=== PATIENT | female | born 1985 | race Caucasian/White ===

== ENCOUNTER 2021-02-27 12:01 | Emergency (ER) | payer OTHER ==
[~2021-02-27] VITALS: Ht 165.1 cm; Wt 104.3 kg
[2021-02-27 13:22] VITALS: BP 119/74
--- NOTE | 2021-02-28 14:32 | EKG ---
[place] [address] ELECTROCARDIOGRAM REPORT Name: DARREN OLSEN Room: [facility]#: [id number] Admission: 02/27/21 Attend Phys: Discharge: 02/27/21 Date of : 89 Date of Service: 02/27/21 1208 Report #: [id number] THIS REPORT FOR: //name// [facility] ED Test Date: 2021-02-27 Test Time: 12:08:32 Pat Name: DARREN OLSEN Department: Room: Gender: F [employer]urb Supervisor: : [id number] Requested By: Graciela Rolbes Order Number: [id number] Andra MD: Guido Castellanos Measurements Intervals Mongo Rate: 98 P: 49 WA: 151 QRS: 67 QRSD: 83 T: 24 QT: 347 QTc: 444 Interpretive Statements Sinus rhythm No previous ECG available for comparison Electronically Signed On 02-28-2021 14:31:53 CDT by Guido Castellanos [email or web address] <ELECTRONICALLY SIGNED> By: Guido Castellanos MD, [facility] 02/28/21 1431 1208 120 Guido Castellanos MD, FACC /EPI
== END 2021-02-27 13:23 | disposition home or self-care (01) ==
LOC: M.ERS 12:01
DX: R07.89 Other chest pain (principal); F17.210 Nicotine dependence, cigarettes, uncomplicated; Z90.49 Acquired absence of other specified parts of digestive tract

== ENCOUNTER 2021-03-01 05:52 | Emergency (ER) | payer OTHER ==
[~2021-03-01] VITALS: Ht 165.1 cm; Wt 102.1 kg
[2021-03-01 06:15] LABS: URINE BILIRUBIN NEGATIVE (Negative); URINE BLOOD TRACE (Negative); URINE CLARITY CLEAR; URINE COLOR YELLOW; URINE GLUCOSE-RANDOM NEGATIVE (Negative); URINE KETONES NEGATIVE (Negative); URINE LEUKOCYTES-REFLEX NEGATIVE (Negative); URINE NITRITE-REFLEX NEGATIVE (Negative); URINE PROTEIN NEGATIVE (Negative); URINE SPECIFIC GRAVITY 1.025 (1.005-1.030); URINE UROBILINOGEN 0.2 E.U./dl (0.2-1.0)
[2021-03-01] MEDS ORDERED: ZOFRAN ODT4 MG PO (06:31)
[2021-03-01] MEDS ORDERED: CARAFATE 1 GM TA1 GM PO (06:31)
[2021-03-01] MEDS ORDERED: OMEPRAZOLE 20 M20 M1 PO (06:31)
[2021-03-01 06:34] LABS: AMP/METHAMP Negative (Negative); BARBITURATES Negative (Negative); BENZODIAZEPINES Negative (Negative); COCAINE Negative (Negative); METHADONE Negative (Negative); OPIATES Negative (Negative); PCP Negative (Negative); THC POSITIVE (Negative)
[2021-03-01 07:06] VITALS: BP 147/93
== END 2021-03-01 07:07 | disposition home or self-care (01) ==
LOC: M.ERS 05:52
PROVIDERS: Emergency Medicine
DX: K29.70 Gastritis, unspecified, without bleeding (principal); Z90.49 Acquired absence of other specified parts of digestive tract

== ENCOUNTER 2021-03-30 11:56 | Emergency (ER) | payer OTHER ==
[~2021-03-30] VITALS: Ht 165.1 cm; Wt 108.9 kg
[~2021-03-30 11:56] MED LIST: CARAFATE 1 GM TA1 GM PO; OMEPRAZOLE 20 M20 M1 PO; ZOFRAN ODT4 MG PO
[2021-03-30] MEDS ORDERED: NAPROSYN500 MG PO (13:37)
[2021-03-30 13:54] VITALS: BP 137/86
== END 2021-03-30 13:54 | disposition home or self-care (01) ==
LOC: M.ERS 11:56
DX: M76.62 Achilles tendinitis, left leg (principal); F17.210 Nicotine dependence, cigarettes, uncomplicated; Z90.49 Acquired absence of other specified parts of digestive tract

== ENCOUNTER 2021-04-06 21:40 | Emergency (ER) | payer OTHER ==
[~2021-04-06] VITALS: Ht 165.1 cm; Wt 106.6 kg
[~2021-04-06 21:40] MED LIST changes: +NAPROSYN500 MG PO
[2021-04-06] MEDS ORDERED: CEPHALEXIN500 MG PO (22:11)
[2021-04-06 22:45] VITALS: BP 145/98
== END 2021-04-06 22:45 | disposition home or self-care (01) ==
LOC: M.ERS 21:40
DX: S51.812A Laceration without foreign body of left forearm, initial encounter (principal); W45.8XXA Other foreign body or object entering through skin, initial encounter; Y93.89 Activity, other specified; Y92.89 Other specified places as the place of occurrence of the external cause; Y99.8 Other external cause status

== ENCOUNTER 2021-04-20 14:26 | Emergency (ER) | payer OTHER ==
[~2021-04-20] VITALS: Ht 165.1 cm; Wt 106.6 kg
[~2021-04-20 14:26] MED LIST changes: +CEPHALEXIN500 MG PO
[2021-04-20] MEDS ORDERED: BACTRIM DS TAB1 EAC1 PO (15:09)
[2021-04-20] MEDS ORDERED: AUGMENTIN 875-1 EACH PO (15:09)
[2021-04-20 15:16] VITALS: BP 153/82
== END 2021-04-20 15:17 | disposition home or self-care (01) ==
LOC: M.ERS 14:26
DX: S51.812D Laceration without foreign body of left forearm, subsequent encounter (principal); H00.034 Abscess of left upper eyelid; Z48.02 Encounter for removal of sutures; Z90.49 Acquired absence of other specified parts of digestive tract; X58.XXXD Exposure to other specified factors, subsequent encounter

== ENCOUNTER 2021-04-22 08:34 | Emergency (ER) | payer OTHER ==
[~2021-04-22] VITALS: Ht 165.1 cm; Wt 106.6 kg
[~2021-04-22 08:34] MED LIST changes: +AUGMENTIN 875-1 EACH PO; +BACTRIM DS TAB1 EAC1 PO
[2021-04-22] MEDS ORDERED: ERYTHROMYCIN E3.5 G3 OPHTHALMIC (09:20)
[2021-04-22 09:26] VITALS: BP 134/72
== END 2021-04-22 09:27 | disposition home or self-care (01) ==
LOC: M.ERS 08:34
DX: H00.014 Hordeolum externum left upper eyelid (principal); Z90.49 Acquired absence of other specified parts of digestive tract; Z90.89 Acquired absence of other organs

== ENCOUNTER 2021-06-15 08:34 | Emergency (ER) | payer OTHER ==
[~2021-06-15] VITALS: Ht 165.1 cm; Wt 104.3 kg
[~2021-06-15 08:34] MED LIST changes: +ERYTHROMYCIN E3.5 G3 OPHTHALMIC
[2021-06-15] MEDS ORDERED: PREDNISONE 20 M20 M1 PO (09:32)
[2021-06-15] MEDS ORDERED: ZPAK PO (09:32)
[2021-06-15 09:36] VITALS: BP 151/89
== END 2021-06-15 09:37 | disposition home or self-care (01) ==
LOC: M.ERS 08:34
DX: J40 Bronchitis, not specified as acute or chronic (principal); Z20.822 Contact with and (suspected) exposure to COVID-19